=== PATIENT | female | born 1960 | race Caucasian/White ===

== ENCOUNTER 2020-08-03 15:19 | Outpatient (CLI) | payer BC, SELFPAY | END 2020-08-03 15:20 | disposition home or self-care (01) | LOC: ANHCOVIDVC 15:19 | PROVIDERS: PCP Internal Medicine | DX: Z23 Encounter for immunization (principal) | CPT/HCPCS: 0001A; 91300 ==

== ENCOUNTER 2020-08-24 15:19 | Outpatient (CLI) | payer BC, SELFPAY | END 2020-08-24 15:20 | disposition home or self-care (01) | LOC: ANHCOVIDVC 15:19 | PROVIDERS: PCP Internal Medicine | DX: Z23 Encounter for immunization (principal) | CPT/HCPCS: 0002A; 91300 ==

== ENCOUNTER 2024-08-20 09:45 | Emergency (ER) | payer MEDICARE, SELFPAY ==
[2024-08-20 09:54] VITALS: BP 124/72; PULSE 67; RESP 17; TEMP 36.6; O2SAT 97
--- NOTE | 2024-08-20 09:56 | ED_ITS ---
HPI - URI/Sore Throat General Chief Complaint: Upper Respiratory Infection Stated Complaint: congestion Time Seen by Provider: 08/20/24 09:57 Source: patient Mode of arrival: ambulatory Limitations: no limitations History of Present Illness HPI Narrative: 63-year-old female presents complaint nasal a sinus congestion mild sinus pressure for the past 5-6 days. Reports postnasal drainage, coughing. Reports cough worse the past 2 days chest congestion. Taking Mucinex DM no relief symptoms. Denies sinus headaches. Afebrile. Patient concern for sinus infection. All Systems reviewed and negative except as noted above. Related Data Home Medications ?Medication ?Instructions ?Recorded ?Confirmed ?Last Taken ?Type naproxen sodium 220 mg tablet 220 mg PO DAILY PRN 04/05/22 06/11/24 Unknown History (Aleve) omega 3-vitamin E-fish oil 700 cap PO 04/05/22 06/11/24 Unknown History mg-15 unit-1,100 mg capsule turmeric 100 mg-jasmin 150 cap PO 04/19/23 06/11/24 Unknown History mg-olive 50 mg-oreg 150 mg-capryl capsule magnesium oxide 250 mg PO DAILY 10/29/23 06/11/24 Unknown History calcium 600 mg-D3 800 unit-mag11 1 tablet PO DAILY 06/11/24 06/11/24 Unknown History 50 zw-dvke-yfstbk-kerrie-s.borat tablet (Caltrate 600-D Plus Minerals) Allergies Allergy/AdvReac Type Severity Reaction Status Date / Time Penicillins Allergy Intermediate Nausea and Verified 08/20/24 09:57 Vomiting gluten AdvReac Severe Diarrhea Verified 08/20/24 09:57 Review of Systems Review of Systems: CONSTITUTIONAL: Denies fever, chills, or sweats. EYES: Denies visual changes, redness, or discharge. ENT: reports rhinorrhea, congestion, sinus pressure. Denies sore throat, or otalgia. CARDIOVASCULAR: Denies chest pain, palpitations, or edema. RESPIRATORY: reports cough, chest congestion. Denies dyspnea. GASTROINTESTINAL: Denies abdominal pain, nausea, vomiting, or diarrhea. GENITOURINARY: Denies dysuria or hematuria. SKIN: Denies rash or itching. MUSCULOSKELETAL: Denies back pain, joint pain, or myalgia. NEUROLOGIC: Denies headache, numbness, or weakness. PSYCHIATRIC: Denies anxiety or depression. All other systems reviewed are negative, except as documented in HPI. [facility] Past Medical History Medical History Osteoporosis Gluten intolerance Anxiety Epilepsy Hypertension Dyslipidemia Surgical History Surgical History History of bilateral cataract extraction 12/2023 History of hemorrhoidectomy 2002 Family History Family History Sibling Breast cancer Grandparent Breast cancer maternal and paternal grandmother Father Depression Hypertension Cerebrovascular accident Mother Hypertension Social History Social History (Updated 06/11/24 @ 10:51 by Dorina Cabrera CMA) Smoking status: Never smoker Alcohol intake: current Alcohol use details: occasional 1-4/wk Substance use: never Substance use type: does not use Do You Feel Safe in your Home?: Yes Lack of Transportation: No Lack of Food: Never True Current Housing: I Have Housing Concerned About Future Housing: No Difficulty Paying Gas/Electric Bills: No Difficulty Paying for Meds: No Currently Unemployed: No Education: High School Diploma/GED Difficulty w/ Childcare or Family Care: No Living arrangements: with family Occupation/Education: occupation Gender identity (if verbalized by the patient): Female Sexual Orientation (if Verbalized by the Patient): Straight or Heterosexual Comments At time of signature, agree with nursing past medical, surgical, social and family history. There is no relevant family history pertinent to the presenting complaint. Exam Narrative: GENERAL: This is a well-nourished, well-developed patient, in no apparent distress. HEAD: normocephalic, atraumatic. EYES: PERRL. Sclera clear/white. Vision is grossly intact. EARS: External ears normal, auditory canals clear and without drainage, clear fluid bilateral TMs without erythema or perforation. Hearing grossly intact. NOSE: External nose normal with nasal drainage, erythema to bilateral nares without significant nares swelling. Bilateral maxillary sinus tenderness on palpation THROAT: Mucous membranes moist, postnasal drainage NECK: Neck supple, non-tender without lymphadenopathy, masses or thyromegaly. CARDIOVASCULAR: Regular rate and rhythm without murmurs, gallops, or rubs. RESPIRATORY: Clear to auscultation. Breath sounds equal bilaterally. No wheezes, rales, or rhonchi. SKIN: warm, Dry, intact with no suspicious lesions or rash, good texture and turgor. NEURO: awake, alert, and oriented to person, place and time. There were no obvious focal neurologic abnormalities. EXTREMITIES: No joint tenderness, effusion, or edema noted. Course Course Level of Care: Express Care Visit Vital Signs Vital signs: Vital Signs Temperature 36.6 C 08/20/24 09:54 Pulse Rate 67 08/20/24 09:54 Respiratory Rate 17 08/20/24 09:54 Blood Pressure 124/72 08/20/24 09:54 Pulse Oximetry 97 08/20/24 09:54 Oxygen Delivery Room Air 08/20/24 09:54 Temperature 36.6 C 08/20/24 09:54 Pulse Rate 67 08/20/24 09:54 Respiratory Rate 17 08/20/24 09:54 Blood Pressure 124/72 08/20/24 09:54 Pulse Oximetry 97 08/20/24 09:54 Oxygen Delivery Room Air 08/20/24 09:54 reviewed MDM - URI/Sore Throat MDM Narrative Medical decision making narrative: will treat patient for bacterial sinusitis due to duration of symptoms and exam findings. Patient is well-appearing nontoxic. Patient agrees with plan of care. Please be advised this is a medical document. It is intended for [id number]-[id number] communication. It is written in medical language and may contain unfamiliar abbreviations or verbiage. Medical documents are intended to carry relevant information, facts as evident, and the clinical opinion of the practitioner at the time of the encounter. This report may have been done utilizing a voice recognition system. Attempts have been made to correct errors. However, there may be uncorrected grammatical, spelling, and recognition errors present. The file time of this note does not necessarily represent the time of service. Differential Diagnosis Differential diagnosis: Likely upper respiratory infection, otitis media, sinusitis and viral infection Discharge Plan Discharge Clinical Impression: Acute bacterial sinusitis Patient Disposition: Home, Self-Care Condition: Stable Instructions: Antibiotic Form, Sinusitis (ED) Additional Instructions: Take medications as prescribed. Take an wtwz-lqz-nhxecpx antihistamine daily such as Claritin or Zyrtec. Take Tylenol or ibuprofen every 6-8 hours as needed pain and fever. Drink at least 64 oz of water a day. Place cool mist humidifier in bedroom where you sleep. Follow-up with your primary care physician as needed. Patient Language: Estonian Prescriptions: New doxycycline hyclate 100 mg capsule 100 mg PO BID 7 Days Qty: 14 0RF benzonatate 200 mg capsule 200 mg PO TID PRN (Reason: cough) Qty: 20 0RF No Action Caltrate 600-D Plus Minerals 600 mg calcium- 800 unit-50 mg tablet 1 tablet PO DAILY naproxen sodium [Aleve] 220 mg tablet 220 mg PO DAILY PRN omega 3-vitamin E-fish oil 700-15-1,100 mg-unit-mg capsule PO magnesium oxide 400 mg magnesium capsule 250 mg PO DAILY mhoasrze-uwcl-tkbee-oreg-capry 100 mg-150 mg- 50 mg-150 mg capsule PO hydrochlorothiazide 12.5 mg tablet 12.5 mg PO DAILY Qty: 90 1RF ibandronate 150 mg tablet 150 mg PO MONTHLY Qty: 3 1RF losartan 100 mg tablet 100 mg PO DAILY Qty: 90 1RF simvastatin 40 mg tablet 40 mg PO QHS Qty: 90 1RF levetiracetam 250 mg tablet 250 mg PO BID Qty: 180 1RF buspirone 5 mg tablet 5 mg PO DAILY Qty: 90 0RF Follow-up/Referrals: Leatha Hall PA-C [Primary Care Provider] - Time of Disposition: 10:06
--- OUTSIDE RECORDS SUMMARY | 2024-08-20 10:38 | XMS_ITS | Clinical Summary ---
Author Organization [facility] Address [address] [place] [address] Care Team Providers Care Molding Utility Worker Name Role Phone Rhianna Parham MD Primary Care Provider [phone] Allergies Active Allergy Reactions Criticality Noted Date Comments Gluten Meal Diarrhea,GI Upset 02/16/2022 Penicillins Unknown 02/16/2022 Medications busPIRone (BUSPAR) 5 MG tablet Take 1 tablet (5 mg total) by mouth daily. 01/08/2022 Active Cyanocobalamin (B-12) 3000 MCG Cap Active hydroCHLOROthia zide (MICROZIDE) 12.5 MG tablet Take 1 tablet (12.5 mg total) by mouth daily. 12/24/2021 Active losartan (COZAAR) 100 MG tablet Take 1 tablet (100 mg total) by mouth daily. Active levETIRAcetam (KEPPRA) 1000 MG tablet Take 0.5 tablets (500 mg total) by mouth 2 (two) times daily. Active simvastatin (ZOCOR) 40 MG tablet Take 1 tablet (40 mg total) by mouth nightly. 03/09/2022 Active levETIRAcetam (KEPPRA) 500 MG tablet Take 1 tablet (500 mg total) by mouth 2 (two) times daily. 08/08/2022 Active benzonatate (TESSALON PERLES) 100 MG capsuleIndicati ons:Acute non-recurrent frontal sinusitis,Bronc hitis Take 1 capsule (100 mg total) by mouth 3 (three) times daily as needed for Cough. 40 capsule 08/11/2022 Active Active Problems Problem Noted Date Diagnosed Date Screening for colon cancer 03/03/2022 Overview (03/03/2022): Added automatically from request for surgery [id number] Irritable bowel syndrome with diarrhea Overview (03/03/2022): Added automatically from request for surgery [id number] Family History Medical History Relation Comments Breast Cancer Other Breast Cancer Paternal Aunt 70's Breast Cancer Sister Relation Status Comments Other Alive Paternal Aunt Alive Sister Social History Tobacco Use Types Packs/Day Years Used Date Smoking Tobacco: Never Smokeless Tobacco: Never Tobacco Cessation:Counseling Given: Not Answered Alcohol Use Standard Drinks/Week Comments Yes 0 (1 standard drink = 0.6 oz pur e alcohol) socially PHQ-2 Answer Date Recorded PHQ-2 Score - If the patient scores above 3, please move on to questions 3-9 0 02/16/2022 Comments No Sex and Gender Information Value Date Recorded Sex Assigned at Female 08/19/2024 8:10 AM CDT Legal Sex Female 8:09 PM CDT Gender Identity Not on file Sexual Orientation Not on file Last Filed Vital Signs Vital Sign Reading Time Taken Comments Blood Pressure 123/82 08/11/2022 7:33 AM CDT Pulse 76 08/11/2022 7:33 AM CDT Temperature 36.6 C (97.9 F) 08/11/2022 7:33 AM CDT Respiratory Rate 20 08/11/2022 7:33 AM CDT Oxygen Saturation 97% 08/11/2022 7:33 AM CDT Inhaled Oxygen Concentration - - Weight 72.4 kg (159 lb 9.6 oz) 08/11/2022 7:33 A M CDT Height 167.6 cm (5' 6 ) 08/11/2022 7:33 AM CDT Body Mass Index 25.76 08/11/2022 7:33 AM CDT Plan of Treatment Upcoming Encounters Date Type Department Care Team (Late st Contact Info) Description 09/19/2024 10:30 AM CDT Appointment [facility] Mammography [address] [place] [address] Mayito Torres MD [address] [address] Health Maintenance Due Date Last Done Comments Hepatitis C 1976 DTaP, Tdap and Td Vaccines (1 - Tdap) 1977 Zoster Vaccines (1 of 2) 2008 Pneumococcal Vaccine: 65+ Years (1 of 1 - PCV) 12/19/2023 COVID-19 Vaccine (3 - season) 2024 08/24/2020, 08/03/2020 Mammogram Screening 08/19/2025 08/20/2023, 08/02/2023, 03/16/2022, Additional history exists Colorectal Cancer Screening Colonoscopy (10 Years) 03/29/2032 03/29/2022 RSV Immunization or 60+ Years (1 - 1-dose 75+ series) 2033 Dexa Scan (General) Completed 08/02/2023 Meningococcal B Vaccine Aged Out No l onger eligible based on patient's age to complete this topic Meningococcal Vaccine Aged Out No gutierrez vadim eligible based on patient's age to complete this topic Pneumococcal Vaccine: Pediatrics (0 to 5 Years) and At-Risk Patients (6 to 64 Years) Aged Out No longer eligible based on patient's age to complete this topic RSV Immunizations Under 20 Months Aged Out No longer eligible based on patient's age to complete this topic Medical Devices Implanted Type Area Jewel Setter Device Identifier Shelf Expiration Date Model / Serial / Lot Instinct Plus Endoscopic Clipping Device Implanted:Qty: 1 on 03/29/2022 by Derick Nunn MD at [facility] [place] [id number] 03/15/2024 [id number] / / [id number] Description:Ascending colon Procedures Procedure Name Priority Date/Time Associated Diagnosis Comments MG DIAG W JENNFIER RT DIGI Routine 08/20/2023 9:40 AM CDT Abnormal mammogram BONE DENSITY/DEXA Routine 08/02/2023 9:4 4 AM CDT Other primary ovarian failure from Last 3 Months or Most Recently Relevant to Health Maintenance Results * MG DIAG W JENNIFER RT DIGI (08/20/2023 9:40 AM CDT) Anatomical Region Laterality Modality Breast Right Mammography, Rad iographic Imaging 08/20/2023 9:38 AM CDT Narrative 08/20/2023 9:39 AM CDT EXAMINATION: Digital right diagnostic mammogram with 3-D tomosynthesis EXAM DATE/TIME: 08/20/2023 8:56 AM REASON FOR EXAM: ABN MAMM COMPARISON: 08/02/2023. 03/16/2022 TECHNIQUE: Digital diagnostic mammography of the right breast was performed in addition to 3-D Tomosynthesis technique. This study was read with the assistance of a computer-aided detection system. TISSUE DENSITY: There are scattered areas of fibroglandular density. Findings: Previous identified nodule within the medial right breast is due to parenchymal overlap. No gross abnormality on spot compression images are 90 degree ML imaging. No malignant microcalcifications or architectural distortion. ===== IMPRESSION: ===== 1. No mammographic evidence of malignancy. Assessment: ACR BI-RADS 2 - BENIGN FINDING(S) Recommendation: 1:Routine Screening Bilateral Comments: Ordered By: RHIANNA PARHAM Interpreted By: Mickey Araya, 08/20/2023 9:38 AM us Rhianna Parham MD MAMMO Final Result * BONE DENSITY/DEXA (08/02/2023 9:44 AM CDT) Anatomical Region Laterality Modality Bone Bone Density 08/04/2023 5:20 AM CDT Impressions 08/04/2023 5:21 AM CDT IMPRESSION: WHO Classification: osteoporosis. FRAX: No score calculated as one or more T scores are at or below -2.5.. Referred By: RHIANNA PARHAM Interpreted By: Rodrick Farias MD, 08/04/2023 5:20 AM Narrative 08/04/2023 5:21 AM CDT Examination: Bone Density Axial Exam Date/Time: 08/02/2023 9:18 AM Reason For Exam: N/A Other primary ovarian failure Comparison: None Findings: DEXA bone densitometry The bone mineral density (BMD) was determined by dual-energy x-ray absorptiometry, the results are as follows: AP Lumbar Spine L2 through L4 BMD Patient (GM/SQCM): 0.797 T-Score (Standard deviations from young adult peak bone density): -2.6 Left femoral neck: BMD Patient (GM/SQCM): 0.839 T-Score (Standard deviations from young adult peak bone density): -0.1 Total Right femur: BMD Patient (GM/SQCM): 0.885 T-Score (Standard deviations from young adult peak bone density): -0.5 Recommendations: All patients should ensure an adequate intake of dietary calcium and vitamin D. The NOF recommend adults under the age of 50 need 1000 mg of calcium and 400-800 IU of vitamin D daily. Effective therapy for the prevention and treatment of osteoporosis include biphosphonates. Follow-up: People with diagnosed cases of osteoporosis or at high risk for fracture should have regular bone mineral density test. For patients eligible for Medicare, routine testing is allowed once every 2 years. Testing frequency can be increased to one year for patients who have rapidly progressing disease, those who are receiving or discontinuing medical therapy to restore bone mass, or have additional risk factors. Procedure Note Rodrick Farias MD - 08/04/2023 Examination: Bone Density Axial Exam Date/Time: 08/02/2023 9:18 AM Reason For Exam: N/A Other primary ovarian failure Comparison: None Findings: DEXA bone densitometry The bone mineral density (BMD) was determined bydual-energy x-ray absorptiometry, the results are as follows: AP Lumbar Spine L2 through L4 BMD Patient (GM/SQCM): 0.797 T-Score (Standard deviations from young adult peak bonedensity): -2.6 Left femoral neck: BMD Patient (GM/SQCM): 0.839 T-Score (Standard deviations from young adult peak bonedensity): -0.1 Total Right femur: BMD Patient (GM/SQCM): 0.885 T-Score (Standard deviations from young adult peak bonedensity): -0.5 Recommendations: All patients should ensure an adequate intake of dietary calcium andvitamin D. The NOF recommend adults under the age of 50 need 1000 mg ofcalcium and 400-800 IU of vitamin D daily. Effective therapy for theprevention and treatment of osteoporosis include biphosphonates. Follow-up: People with diagnosed cases of osteoporosis or at high risk for fractureshould have regular bone mineral density test. For patients eligible forMedicare, routine testing is allowed once every 2 years. Testing frequencycan be increased to one year for patients who have rapidly progressingdisease, those who are receiving or discontinuing medical therapy torestore bone mass, or have additional risk factors. IMPRESSION: WHO Classification: osteoporosis. FRAX: No score calculated as one or more T scores are at or below -2.5.. Referred By: RHIANNA PARHAM Interpreted By: Rodrick Farias MD, 08/04/2023 5:20 AM us Rhianna Parham MD DEXA Final Result from Last 3 Months or Most Recently Relevant to Health Maintenance Insurance [facility] Care Teams Molding Utility Worker Relationship Specialty Start Date End Date Rhianna Parham MD PCP - General OBGYN 01/27/19
== END 2024-08-20 10:11 | disposition home or self-care (01) ==
PROVIDERS: Emergency Provider Nurse Practitioner Family; PCP Physician Assistant Medical
DX: J01.90 Acute sinusitis, unspecified (principal); I10 Essential (primary) hypertension; E78.5 Hyperlipidemia, unspecified; M81.0 Age-related osteoporosis without current pathological fracture; G40.909 Epilepsy, unspecified, not intractable, without status epilepticus; F41.9 Anxiety disorder, unspecified; Z98.42 Cataract extraction status, left eye; Z98.41 Cataract extraction status, right eye
CPT/HCPCS: 99213; G0463